=== PATIENT | female | born 1985 | race Two or more races ===

== ENCOUNTER 2024-11-30 14:16 | Emergency (ER) | payer SELFPAY ==
[~2024-11-30] VITALS: Ht 180.3 cm; Wt 77.1 kg
[2024-11-30 14:18] VITALS: O2SAT 100
[2024-11-30] MEDS ORDERED: DICL100G58 TP (15:02)
[2024-11-30] MEDS ORDERED: IBUP-2029 MT (15:20)
[2024-11-30 16:12] VITALS: BP 144/90; PULSE 63; RESP 18; TEMP 36.9; O2SAT 100
== END 2024-11-30 16:29 | disposition home or self-care (01) ==
LOC: ER 14:16
DX: S93.402A Sprain of unspecified ligament of left ankle, initial encounter (principal); X58.XXXA Exposure to other specified factors, initial encounter; Y93.89 Activity, other specified; Y92.89 Other specified places as the place of occurrence of the external cause; Y99.8 Other external cause status
CPT/HCPCS: 99283; Z7610